=== PATIENT | male | born 1995 | race Caucasian/White ===

== ENCOUNTER 2021-08-01 01:06 | Inpatient (IN) | payer OTHER, SELFPAY ==
[2021-08-01 06:00] VITALS: BP 132/64; PULSE 76; RESP 18; TEMP 36.8; O2SAT 98
--- NOTE | 2021-08-01 06:23 | PC.ADMIT ---
Pt is a 25 yr old male admitted to unit from [facility]. Arrived on unit at 0125 and placed on 5 min checks per policy. Legal status : CV. Denies any medical issues. Denies substance use Tox screen negative. On admission pt denied SI/SH. Denied hallucinations, delusion , HI. Presented with flat affect but pleasant and cooperative when engaged. Pt appeared to be somewhat confused, when given direction but alert and oriented x3.. Pt Presented tp [facility] with his [facility] worker endorsing command AH to jump into [employer]. HX of [place] the river a few times before. reported to not be medication complaint dye to fear of side effects. Pt stated to have already taken HS meds at [facility]. Asked for snack, given sandwich but later gave it back. Stated to have good appetite I am trying to gain weight . Went to bed at 0300. Nurse to nurse done prior to admission. Susan Parnell Np was notified of admission and orders obtained. Pt placed on 15 min checks. Contracts for unit safety and agrees to seek out staff if necessary. Pt currently laying in bed with eyes closed normal respirations will continue to monitor and offer support as needed.
--- NOTE | 2021-08-01 09:33 | P.HPPS_ITS ---
HPI Chief Complaint: SI Sources of Information: patient interviewed, chart reviewed and crisis/core team assessment reviewed HPI Subjective Notes: Jeter Warning and 3 Day Narrative: Mr. Ragland is a 25 year-old male with hx of schizophrenia who was brought to [facility] due to increase CAH to jump off bridge. Mr. Ragland was recently discharged from [facility] earlier this month after being treated for similar presentation. Of note, Mr. Ragland does have hx of jumping off bridge secondary to CAH. In the ED, his utox was negative. On the unit, Mr. Ragland presents as guarded, fearful and hypervigilant. Pt reports auditory hallucinations telling him to hutr himself. Pt also reports voices telling him he is not safe. He reports fair sleep. He reports stopping risperidone about one week ago as he did not think it was helpful. Pt reports poor sleep. On the unit, pt denies any intent to hurt himself or others. Past Psychiatric History: Inpt: multiple in past, recent one on 07/18 at [facility] OP: unknown [facility] involved: Lesia [phone] Past medication trials: risperidone, haldol Medical Evaluation Reviewed: Hospitalist Neda Pending Diagnostics Vital Signs (24Hr): Vital Signs - 24 hr 08/01/21 06:00 Temperature 98.2 F Pulse Rate 76 Respiratory Rate 18 Blood Pressure 132/64 Pulse Oximetry 98 Meds/Allergies Meds Home Medications Acetaminophen (Acetaminophen 325 Mg Tablet) 650 mg PO Q6H PRN PRN Reason: Headache/Pain Mild Scale (1-3) Last Admin: 08/02/21 19:52 Dose: 650 mg Documented by: Al Hydroxide/Mg Hydroxide (Magnesium Hydrox/Alum Hydrox 30 Ml Oral.Susp) 30 ml PO Q6H PRN PRN Reason: Heartburn/Nausea Hydroxyzine HCl (Hydroxyzine Hcl 25 Mg Tablet) 25 mg PO Q6H PRN PRN Reason: Anxiety Last Admin: 08/03/21 17:09 Dose: 25 mg Documented by: Lorazepam (Lorazepam 1 Mg Tablet) 1 mg PO Q4H PRN PRN Reason: Anxiety Last Admin: 08/02/21 22:27 Dose: 1 mg Documented by: Magnesium Hydroxide (Milk Of Magnesia 30 Ml Oral.Susp) 30 ml PO DAILY PRN PRN Reason: Constipation Nicotine Polacrilex (Nicotine Polacrilex 2 Mg Gum) 4 mg BUCCAL Q2H PRN PRN Reason: Nicotine Cravings Olanzapine (Olanzapine 5 Mg Tablet) 5 mg PO Q4H PRN PRN Reason: agitation Last Admin: 08/02/21 22:27 Dose: 5 mg Documented by: Risperidone (Risperidone 3 Mg Tablet) 3 mg PO BID CYNTHIA Last Admin: 08/03/21 21:19 Dose: 3 mg Documented by: Trazodone HCl (Trazodone Hcl 50 Mg Tablet) 50 mg PO BEDTIME PRN PRN Reason: Insomnia Last Admin: 08/03/21 21:21 Dose: 50 mg Documented by: Allergies Allergies Allergy/AdvReac Type Severity Reaction Status Date / Time No Known Allergies Allergy Verified 08/01/21 01:29 Mental Status Exam Mental Status Exam Narrative: Appearance: casually groomed, fair hygiene in NAD Behavior:guarded, suspicious psychomotor:restless, pacing Speech:clear, normal rate/rhythm/spontaneous Thought process:mostly linear Thought content:hearing voices, suspicious, anxious Mood: anxious Affect: congruent SI:passive HI:none VH/AH:CAH telling him to jump off [place] [address] Delusions:paranoia noted Insight/judgment:poor x 2. Memory/cog: alert, oriented x 3. Assessment & Plan Assessment & Plan (1) Schizophrenia, paranoid, chronic with acute exacerbation: Status: Acute Code(s): F20.0 - Paranoid schizophrenia Assessment and Plan: Mr. Ragland is a 25 year-old male with hx of schizophrenia recently discharged from [facility] with similar presentation including CAH with plan to jump off [facility]. Pt does have hx of jumping off recently due to CAH. Pt reports he stopped taking risperidone. He is unsure as to how helpful this medication has been. We discussed risks, benefits and alternative treatment options. Pt agreed to try olanzapine. He reports in the past has been on haldol- but didn't like how it may be feel. PLAN 1. Admit to M3 2. Start Olanzapine 10mg po BID 3. obtain collateral information 4. Aftercare planning. Reason for continued inpatient stay Substantial Risk for: harm to self and inability to function
[2021-08-01] MEDS: OLANZapine ODT 10 MG TAB.RAPDIS TRANSLINGU ×2 (11:13→20:09)
--- NOTE | 2021-08-01 11:15 | PC.NURSE ---
Pt offered first dose of zyprexa at this time per provider. PT accepted medication.
[2021-08-01] MEDS: hydrOXYzine HCL 25 MG TABLET PO (12:38)
[2021-08-01 18:00] VITALS: BP 135/80; PULSE 67; RESP 18; TEMP 36.6; O2SAT 95
--- NOTE | 2021-08-02 07:52 | P.PNPSI_ITS ---
Subjective Subjective Date of Service: 08/04/21 Reason For Visit: SI Subjective Notes: Jeter Warning and 3 Day Interim History: Pt reports he has continued to hear voices. He reports voices telling him to jump off bridge. He reports he did not like how olanzapine made him feel and would rather take higher dose of risperidone. He denies SI/HI. He continues to present as very hypervigilant and fearful. mostly in his room, minimally interactive with peers or staff. Medication Compliance: Intermittent Side effects from medications: No Attending Groups: No Review of Systems Constitutional: Reports poor appetite Eyes: Reports no additional eye complaints Reports system reviewed and no additional complaints, except as documented Cardiovascular: Denies chest pain, Denies chest pain at rest, Denies chest pain with activity, Denies Epigastric Pain, Denies rapid heart rate and Denies dyspnea on exertion Respiratory: Denies chest congestion and Denies dyspnea on exertion Gastrointestinal: Reports constipation Mental Status Exam Mental Status Exam Narrative: Appearance: casually groomed, fair hygiene in NAD Behavior:guarded, suspicious psychomotor:restless, pacing Speech:clear, normal rate/rhythm/spontaneous Thought process:mostly linear Thought content:hearing voices, suspicious, anxious Mood: anxious Affect: congruent SI:passive HI:none VH/AH:CAH telling him to jump off [employer] Delusions:paranoia noted Insight/judgment:poor x 2. Memory/cog: alert, oriented x 3. Diagnostics Vital Signs (24Hr): Vital Signs - 24 hr 08/03/21 08:57 08/03/21 18:00 Temperature 97.1 F 97.9 F Pulse Rate 66 90 Respiratory Rate 18 18 Blood Pressure 119/80 115/88 Pulse Oximetry 99 99 Labs Labs: Laboratory Results - last 48 hr 08/02/21 08/02/21 08/02/21 07:46 07:46 07:46 Estimat Average Glucose 111 Hemoglobin A1c % 5.5 Triglycerides 166 Cholesterol 144 LDL Cholesterol, Calc 75 HDL Cholesterol 36 Vitamin B12 596 Folate 8.2 TSH 0.76 Medications Medications Current Medications Generic Name Dose Route Start Last Admin Trade Name Freq PRN Reason Stop Dose Admin Acetaminophen 650 mg 08/01/21 01:29 08/02/21 19:52 Acetaminophen 325 Mg Tablet PO 650 mg Q6H PRN Administration Headache/Pain Mild Scale (1-3) Al Hydroxide/Mg Hydroxide 30 ml 08/01/21 01:29 Magnesium Hydrox/Alum Hydrox 30 Ml Oral.Susp PO Q6H PRN Heartburn/Nausea Hydroxyzine HCl 25 mg 08/01/21 01:29 08/03/21 17:09 Hydroxyzine Hcl 25 Mg Tablet PO 25 mg Q6H PRN Administration Anxiety Lorazepam 1 mg 08/02/21 15:16 08/02/21 22:27 Lorazepam 1 Mg Tablet PO 1 mg Q4H PRN Administration Anxiety Magnesium Hydroxide 30 ml 08/01/21 01:29 Milk Of Magnesia 30 Ml Oral.Susp PO DAILY PRN Constipation Nicotine Polacrilex 4 mg 08/01/21 01:29 Nicotine Polacrilex 2 Mg Gum BUCCAL Q2H PRN Nicotine Cravings Olanzapine 5 mg 08/02/21 15:16 08/02/21 22:27 Olanzapine 5 Mg Tablet PO 5 mg Q4H PRN Administration agitation Risperidone 3 mg 08/02/21 15:15 08/03/21 21:19 Risperidone 3 Mg Tablet PO 3 mg BID CYNTHIA Administration Trazodone HCl 50 mg 08/01/21 01:29 08/03/21 21:21 Trazodone Hcl 50 Mg Tablet PO 50 mg BEDTIME PRN Administration Insomnia Allergies Allergies Allergy/AdvReac Type Severity Reaction Status Date / Time No Known Allergies Allergy Verified 08/01/21 01:29 Assessment & Plan Assessment & Plan (1) Schizophrenia, paranoid, chronic with acute exacerbation: Status: Acute Code(s): F20.0 - Paranoid schizophrenia Assessment and Plan: Mr. Ragland is a 25 year-old male with hx of schizophrenia recently discharged from [facility] with similar presentation including CAH with plan to jump off [facility]. Pt does have hx of jumping off recently due to CAH. Pt reports he stopped taking risperidone. He is unsure as to how helpful this medication has been. We discussed risks, benefits and alternative treatment options. Pt agreed to try olanzapine. He reports in the past has been on haldol- but didn't like how it may be feel. PLAN 1. Admit to M3 2. d/c Olanzapine 10mg po BID, restart risperidone 3mg po BID. 3. obtain collateral information 4. Aftercare planning. Greater than 50% of the session was spent on counseling and/or coordination of care Reason for contiued inpatient stay Substantial Risk for: harm to self and inability to function
[2021-08-02 08:13] LABS: Cholesterol 144 mg/dL; HDL Cholesterol 36 mg/dL; LDL Cholesterol Calculated 75 mg/dl; Triglycerides 166 mg/dL
[2021-08-02 08:32] LABS: Estimated Average Glucose 111 mg/dL; Hemoglobin A1c % 5.5 %; Thyroid Stimulating Hormone 0.76 uIU/mL (0.32-4.0)
[2021-08-02 09:33] VITALS: BP 123/79; PULSE 83; RESP 16; TEMP 36.4; O2SAT 95
[2021-08-02] MEDS: risperiDONE 3 MG TABLET PO ×2 (15:47→21:16)
[2021-08-02 18:00] VITALS: BP 124/74; PULSE 82; RESP 16; TEMP 36.8; O2SAT 100
[2021-08-02] MEDS: Acetaminophen 325 MG TABLET 650 MG PO (19:52)
[2021-08-02] MEDS: OLANZapine 5 MG TABLET PO (22:27)
[2021-08-02] MEDS: LORazepam 1 MG TABLET PO (22:27)
--- NOTE | 2021-08-03 07:54 | P.PNPSI_ITS ---
Subjective Subjective Date of Service: 08/04/21 Reason For Visit: SI Interim History: Pt reports he has continued to hear voices. He reports voices telling him to jump off bridge. He reports he did not like how olanzapine made him feel and would rather take higher dose of risperidone. He denies SI/HI. He continues to present as very hypervigilant and fearful. mostly in his room, minimally interactive with peers or staff. Review of Systems Constitutional: Reports poor appetite Eyes: Reports no additional eye complaints Reports system reviewed and no additional complaints, except as documented Cardiovascular: Denies chest pain, Denies chest pain at rest, Denies chest pain with activity, Denies Epigastric Pain, Denies rapid heart rate and Denies dyspnea on exertion Respiratory: Denies chest congestion and Denies dyspnea on exertion Gastrointestinal: Reports constipation Mental Status Exam Mental Status Exam Narrative: Appearance: casually groomed, fair hygiene in NAD Behavior:guarded, suspicious psychomotor:restless, pacing Speech:clear, normal rate/rhythm/spontaneous Thought process:mostly linear Thought content:hearing voices, suspicious, anxious Mood: anxious Affect: congruent SI:passive HI:none VH/AH:CAH telling him to jump off [employer] Delusions:paranoia noted Insight/judgment:poor x 2. Memory/cog: alert, oriented x 3. Diagnostics Vital Signs (24Hr): Vital Signs - 24 hr 08/03/21 08:57 08/03/21 18:00 Temperature 97.1 F 97.9 F Pulse Rate 66 90 Respiratory Rate 18 18 Blood Pressure 119/80 115/88 Pulse Oximetry 99 99 Labs Labs: Laboratory Results - last 48 hr 08/02/21 08/02/21 08/02/21 07:46 07:46 07:46 Estimat Average Glucose 111 Hemoglobin A1c % 5.5 Triglycerides 166 Cholesterol 144 LDL Cholesterol, Calc 75 HDL Cholesterol 36 Vitamin B12 596 Folate 8.2 TSH 0.76 Medications Medications Current Medications Generic Name Dose Route Start Last Admin Trade Name Freq PRN Reason Stop Dose Admin Acetaminophen 650 mg 08/01/21 01:29 08/02/21 19:52 Acetaminophen 325 Mg Tablet PO 650 mg Q6H PRN Administration Headache/Pain Mild Scale (1-3) Al Hydroxide/Mg Hydroxide 30 ml 08/01/21 01:29 Magnesium Hydrox/Alum Hydrox 30 Ml Oral.Susp PO Q6H PRN Heartburn/Nausea Hydroxyzine HCl 25 mg 08/01/21 01:29 08/03/21 17:09 Hydroxyzine Hcl 25 Mg Tablet PO 25 mg Q6H PRN Administration Anxiety Lorazepam 1 mg 08/02/21 15:16 08/02/21 22:27 Lorazepam 1 Mg Tablet PO 1 mg Q4H PRN Administration Anxiety Magnesium Hydroxide 30 ml 08/01/21 01:29 Milk Of Magnesia 30 Ml Oral.Susp PO DAILY PRN Constipation Nicotine Polacrilex 4 mg 08/01/21 01:29 Nicotine Polacrilex 2 Mg Gum BUCCAL Q2H PRN Nicotine Cravings Olanzapine 5 mg 08/02/21 15:16 08/02/21 22:27 Olanzapine 5 Mg Tablet PO 5 mg Q4H PRN Administration agitation Risperidone 3 mg 08/02/21 15:15 08/03/21 21:19 Risperidone 3 Mg Tablet PO 3 mg BID CYNTHIA Administration Trazodone HCl 50 mg 08/01/21 01:29 08/03/21 21:21 Trazodone Hcl 50 Mg Tablet PO 50 mg BEDTIME PRN Administration Insomnia Allergies Allergies Allergy/AdvReac Type Severity Reaction Status Date / Time No Known Allergies Allergy Verified 08/01/21 01:29 Assessment & Plan Assessment & Plan (1) Schizophrenia, paranoid, chronic with acute exacerbation: Status: Acute Code(s): F20.0 - Paranoid schizophrenia Assessment and Plan: Mr. Ragland is a 25 year-old male with hx of schizophrenia recently discharged from [facility] with similar presentation including CAH with plan to jump off [facility]. Pt does have hx of jumping off recently due to CAH. Pt reports he stopped taking risperidone. He is unsure as to how helpful this medication has been. We discussed risks, benefits and alternative treatment options. Pt agreed to try olanzapine. He reports in the past has been on haldol- but didn't like how it may be feel. PLAN 1. Admit to M3 2. d/c Olanzapine 10mg po BID, restart risperidone 3mg po BID. 3. obtain collateral information 4. Aftercare planning. Greater than 50% of the session was spent on counseling and/or coordination of care Reason for contiued inpatient stay Substantial Risk for: inability to function
[2021-08-03 08:57] VITALS: BP 119/80; PULSE 66; RESP 18; TEMP 36.2; O2SAT 99
[2021-08-03] MEDS: risperiDONE 3 MG TABLET PO ×2 (09:13→21:19)
[2021-08-03 09:49] LABS: Folate 8.2 ng/mL (> or = 4.0); Vitamin B12 596 pg/mL (200-900)
[2021-08-03] MEDS: hydrOXYzine HCL 25 MG TABLET PO (17:09)
[2021-08-03 18:00] VITALS: BP 115/88; PULSE 90; RESP 18; TEMP 36.6; O2SAT 99
[2021-08-03] MEDS: traZODone HCL 50 MG TABLET PO (21:21)
[2021-08-04 06:00] VITALS: BP 134/86; PULSE 91; RESP 20; TEMP 36.9; O2SAT 98
[2021-08-04] MEDS: risperiDONE 3 MG TABLET PO (08:52)
[2021-08-04] MEDS: LORazepam 1 MG TABLET PO ×3 (11:55→21:20)
--- NOTE | 2021-08-04 12:59 | HO.HSGERICON ---
History of Present Illness Data of Consult Service Date: 08/04/21 Primary Care Provider: Unknown Physician HPI Reason for consult: Routine Medical consult This is a 25 yo M admitted to the psych unit. Medical consultation requested per protocol. Patient is seen and examined in his room. He denies any physical complaints He denies being on medication for any medical conditions. Review of Systems Review of Systems: General - no fevers or chills Cardiovascular - no chest pain Respiratory - no shortness of breath or cough Abdominal- no abdominal pain, nausea, vomiting, diarrhea PMFSH Social History Household Members: Other Housing: Other Housing Other:: [facility] Do you presently have visiting nurse or other home services: No Patient Tobacco Use Status: Current someday Tobacco user Tobacco use type: Cigarette Smoked in Last 30 Days: Yes e-Cigarette/Vaping Use: Never Used Patient Interested in Nicotine Replacement: Yes Patient Given Instructions on How to Stop Smoking: No Use of substances other than those prescribed or required for medical reasons: Yes Substance Use Type: Hallucinogens and Marijuana Substance Use Type Other:: pt denied any drug use but ed forms state pt used marijuana, LSD, ecstasy Substance Use Frequency: Occasionally Last Used Substance: Days (ago) Last Used Substance Other:: 3 days ago Currently Displaying Signs/Symptoms of Drug Intoxication Withdrawal: No Any prior treatment program specific to substance use: No Have you been hit, kicked, punched, or otherwise hurt by someone within the past year? If so, by whom?: No Do you feel safe in your current relationship?: No Is there a partner from a previous relationship who is making you feel unsafe now?: No Are you made to feel afraid or neglected: No Spiritual Healthcare Practices: pt states believes in God but isn't scientologist no specific hinduism. Islam Healthcare Practices: none Advance Directives: No Advance Directives Information Provided: No Advance Directives on File: No Do you have thoughts of harming others: None Do you have a plan to hurt others: No Plan Recently lost weight without trying: No Eating poorly because of decreased appetite: No Nutrition Risks: No Nutritional Risk Poor oral hygiene: No Sexual orientation: Cisgender Meds Allergies Allergy/AdvReac Type Severity Reaction Status Date / Time No Known Allergies Allergy Verified 08/01/21 01:29 Active Medications: Current Medications Generic Name Dose Route Start Last Admin Trade Name Freq PRN Reason Stop Dose Admin Acetaminophen 650 mg 08/01/21 01:29 08/02/21 19:52 Acetaminophen 325 Mg Tablet PO 650 mg Q6H PRN Administration Headache/Pain Mild Scale (1-3) Al Hydroxide/Mg Hydroxide 30 ml 08/01/21 01:29 Magnesium Hydrox/Alum Hydrox 30 Ml Oral.Susp PO Q6H PRN Heartburn/Nausea Hydroxyzine HCl 25 mg 08/01/21 01:29 08/03/21 17:09 Hydroxyzine Hcl 25 Mg Tablet PO 25 mg Q6H PRN Administration Anxiety Hydroxyzine HCl 25 mg 08/04/21 17:00 Hydroxyzine Hcl 25 Mg Tablet PO DAILY CYNTHIA Lorazepam 1 mg 08/02/21 15:16 08/04/21 11:55 Lorazepam 1 Mg Tablet PO 1 mg Q4H PRN Administration Anxiety Magnesium Hydroxide 30 ml 08/01/21 01:29 Milk Of Magnesia 30 Ml Oral.Susp PO DAILY PRN Constipation Nicotine Polacrilex 4 mg 08/01/21 01:29 Nicotine Polacrilex 2 Mg Gum BUCCAL Q2H PRN Nicotine Cravings Olanzapine 5 mg 08/02/21 15:16 08/02/21 22:27 Olanzapine 5 Mg Tablet PO 5 mg Q4H PRN Administration agitation Olanzapine 7.5 mg 08/04/21 21:00 Olanzapine 2.5 Mg Tablet PO BID CYNTHIA Trazodone HCl 50 mg 08/01/21 01:29 08/03/21 21:21 Trazodone Hcl 50 Mg Tablet PO 50 mg BEDTIME PRN Administration Insomnia Assessment and Plan (1) Routine medical exam: Status: Acute This is a 25 yo M admitted to the inpatient psych unit. He has no active (at this time) nor chronic medical issues. Continue psychiatric treatment per primary team. Will sign off, please reconsult PRN. Physical Exam Vital Signs: Last Vital Signs Temp 97.9 F 08/03/21 18:00 Pulse 90 08/03/21 18:00 Resp 18 08/03/21 18:00 BP 115/88 08/03/21 18:00 Pulse Ox 99 08/03/21 18:00 Const Other: General - no acute distress, appears comfortable Cardiovascular - regular rate and rhythm, S1-S2 Lungs - normal respiratory effort, clear to auscultation bilaterally, no wheezing Abdomen - soft, nontender, no rebound or guarding Extremities - no edema bilaterally Neuro - awake and alert, no focal deficits; CN 2-12 in tact Neuro Cranial nerves: Yes CN's II-XII intact bilaterally
--- NOTE | 2021-08-04 13:57 | P.PNPSI_ITS ---
Subjective Subjective Date of Service: 08/04/21 Reason For Visit: SI Interim History: pt reports he is feeling a bit better since admission. he has been taking risperidone for the past several days. he is normally prescribed risperidone outpatient. asking to be able to use his cellphone or laptop in the hospital and is informed it is against hospital practice. he at first states he would like to discharge to a alf if that is the case but then decides to stay. he is amenable to trying a different neuroleptic bcse his Sx are not fully resolved on a substantial dose of risperidone. he agrees to olanzapine trial at 10 BID. denies SI. endorses AH or derogatory commentary, no CAH. per staff, signed and then retracted 3-day. attended 2/3 groups. wandering, active in milieu, appropriate socially. disorganized, asking for fresh air breaks. was found with his phone ini his room, playing games. had a PRN which was helpful for anxiety. Mental Status Exam Mental Status Exam Narrative: appropriately dressed and groomed. cooperative with interview. speech nml in rate, amount. soft. nml latency. affect moderately flexible. appropriate, normo-intense, non-labile. mood OK. denies SI. endorses AH (no CAH). no HI expressed. Diagnostics Vital Signs (24Hr): Vital Signs - 24 hr 08/03/21 18:00 Temperature 97.9 F Pulse Rate 90 Respiratory Rate 18 Blood Pressure 115/88 Pulse Oximetry 99 Labs Labs: Laboratory Results - last 48 hr 08/02/21 07:46 Vitamin B12 596 Folate 8.2 Medications Medications Current Medications Generic Name Dose Route Start Last Admin Trade Name Willq PRN Reason Stop Dose Admin Acetaminophen 650 mg 08/01/21 01:29 08/02/21 19:52 Acetaminophen 325 Mg Tablet PO 650 mg Q6H PRN Administration Headache/Pain Mild Scale (1-3) Al Hydroxide/Mg Hydroxide 30 ml 08/01/21 01:29 Magnesium Hydrox/Alum Hydrox 30 Ml Oral.Susp PO Q6H PRN Heartburn/Nausea Hydroxyzine HCl 25 mg 08/01/21 01:29 08/03/21 17:09 Hydroxyzine Hcl 25 Mg Tablet PO 25 mg Q6H PRN Administration Anxiety Hydroxyzine HCl 25 mg 08/04/21 17:00 Hydroxyzine Hcl 25 Mg Tablet PO DAILY CYNTHIA Lorazepam 1 mg 08/02/21 15:16 08/04/21 11:55 Lorazepam 1 Mg Tablet PO 1 mg Q4H PRN Administration Anxiety Magnesium Hydroxide 30 ml 08/01/21 01:29 Milk Of Magnesia 30 Ml Oral.Susp PO DAILY PRN Constipation Nicotine Polacrilex 4 mg 08/01/21 01:29 Nicotine Polacrilex 2 Mg Gum BUCCAL Q2H PRN Nicotine Cravings Olanzapine 5 mg 08/02/21 15:16 08/02/21 22:27 Olanzapine 5 Mg Tablet PO 5 mg Q4H PRN Administration agitation Olanzapine 7.5 mg 08/04/21 21:00 Olanzapine 2.5 Mg Tablet PO BID CYNTHIA Trazodone HCl 50 mg 08/01/21 01:29 08/03/21 21:21 Trazodone Hcl 50 Mg Tablet PO 50 mg BEDTIME PRN Administration Insomnia Allergies Allergies Allergy/AdvReac Type Severity Reaction Status Date / Time No Known Allergies Allergy Verified 08/01/21 01:29 Assessment & Plan Assessment & Plan (1) Schizophrenia, paranoid, chronic with acute exacerbation: Status: Acute Code(s): F20.0 - Paranoid schizophrenia Assessment and Plan: Mr. Ragland is a 25 year-old male with hx of schizophrenia recently discharged from [facility] with similar presentation including CAH with plan to jump off bridge into [facility]. Pt does have hx of jumping off bridge recently due to CAH. Pt reports he stopped taking risperidone. He is unsure as to how helpful this medication has been. We discussed risks, benefits and alternative treatment options. Pt agreed to try olanzapine. He reports in the past has been on haldol- but didn't like how it may be feel. PLAN 1. keep safe on unit; Q15 min checks. 2. d/c risperidone 3mg po BID, start olanzapine 10 mg PO BID. 3. Aftercare planning. Greater than 50% of the session was spent on counseling and/or coordination of care Reason for contiued inpatient stay Substantial Risk for: harm to self, inability to function and rapid decompensation
[2021-08-04] MEDS: hydrOXYzine HCL 25 MG TABLET PO ×3 (14:11→21:20)
[2021-08-04] MEDS: Acetaminophen 325 MG TABLET 650 MG PO (16:46)
[2021-08-04 18:00] VITALS: BP 119/75; PULSE 90; TEMP 36.7; O2SAT 98
[2021-08-04] MEDS: OLANZapine 2.5 MG TABLET 7.5 MG PO (20:29)
[2021-08-05] MEDS: OLANZapine 5 MG TABLET PO (00:03)
[2021-08-05] MEDS: traZODone HCL 50 MG TABLET PO (00:03)
[2021-08-05 01:00] VITALS: BP 115/70; PULSE 80
[2021-08-05] MEDS: hydrOXYzine HCL 25 MG TABLET PO (08:41)
[2021-08-05] MEDS: OLANZapine 2.5 MG TABLET 7.5 MG PO (08:42)
--- NOTE | 2021-08-05 12:19 | P.PNPSI_ITS ---
Subjective Subjective Date of Service: 08/05/21 Reason For Visit: SI Interim History: pt reports feeling sedated this morning, which he (most likely correctly) attributes to the olanzapine. MD informs pt the dosing will be rescheduled to all be at HS. pt is in agreement with this plan. he expresses strong anxiety today at the same time as feeling sedated. it appears he has taken some hydroxyzine; MD counsels against hydroxyzine if he does not wish to be sedated. he shortly after asks for something for his anxiety, which MD now believes to be quite substantial. it is noted he has a PRN of ativan available and pt is advised to take ativan in the present case. pt agrees. no other complaints or requests. per staff, pt reporting fair anxiety. c/o depression as well. denies SI. endorses AH but does not elaborate. pacing the halls, staring at self in the hallway mirrors, has confided in staff the need to watch violent porn in order to feel sexually aroused. he reports h/o exposure to such content as a child. Mental Status Exam Mental Status Exam Narrative: appropriately dressed and groomed. cooperative with interview. speech nml in rate, amount. soft. nml latency. affect moderately flexible. appropriate, normo-intense, non-labile. mood anxious no SI/HI/AVH expressed. Diagnostics Vital Signs (24Hr): Vital Signs - 24 hr 08/04/21 18:00 08/05/21 01:00 Temperature 98.0 F Pulse Rate 90 80 Blood Pressure 119/75 115/70 Pulse Oximetry 98 Medications Medications Current Medications Generic Name Dose Route Start Last Admin Trade Name Cruz PRN Reason Stop Dose Admin Acetaminophen 650 mg 08/01/21 01:29 08/04/21 16:46 Acetaminophen 325 Mg Tablet PO 650 mg Q6H PRN Administration Headache/Pain Mild Scale (1-3) Al Hydroxide/Mg Hydroxide 30 ml 08/01/21 01:29 Magnesium Hydrox/Alum Hydrox 30 Ml Oral.Susp PO Q6H PRN Heartburn/Nausea Hydroxyzine HCl 25 mg 08/01/21 01:29 08/05/21 08:41 Hydroxyzine Hcl 25 Mg Tablet PO 25 mg Q6H PRN Administration Anxiety Hydroxyzine HCl 25 mg 08/04/21 17:00 08/05/21 10:04 Hydroxyzine Hcl 25 Mg Tablet PO Not Given DAILY CYNTHIA Lorazepam 1 mg 08/02/21 15:16 08/04/21 21:20 Lorazepam 1 Mg Tablet PO 1 mg Q4H PRN Administration Anxiety Magnesium Hydroxide 30 ml 08/01/21 01:29 Milk Of Magnesia 30 Ml Oral.Susp PO DAILY PRN Constipation Nicotine Polacrilex 4 mg 08/01/21 01:29 Nicotine Polacrilex 2 Mg Gum BUCCAL Q2H PRN Nicotine Cravings Olanzapine 5 mg 08/02/21 15:16 08/05/21 00:03 Olanzapine 5 Mg Tablet PO 5 mg Q4H PRN Administration agitation Olanzapine 20 mg 08/05/21 21:00 Olanzapine 10 Mg Tablet PO BEDTIME CYNTHIA Trazodone HCl 50 mg 08/01/21 01:29 08/05/21 00:03 Trazodone Hcl 50 Mg Tablet PO 50 mg BEDTIME PRN Administration Insomnia Allergies Allergies Allergy/AdvReac Type Severity Reaction Status Date / Time No Known Allergies Allergy Verified 08/01/21 01:29 Assessment & Plan Assessment & Plan (1) Schizophrenia, paranoid, chronic with acute exacerbation: Status: Acute Code(s): F20.0 - Paranoid schizophrenia Assessment and Plan: Mr. Ragland is a 25 year-old male with hx of schizophrenia recently discharged from [facility] with similar presentation including CAH with plan to jump [facility] into [facility]. Pt does have hx of jumping off bridge recently due to CAH. Pt reports he stopped taking risperidone. He is unsure as to how helpful this medication has been. We discussed risks, benefits and alternative treatment options. Pt agreed to try olanzapine. He reports in the past has been on haldol- but didn't like how it may be feel. PLAN 1. keep safe on unit; Q15 min checks. 2. d/sakshi risperidone 3mg po BID 08/04, started olanzapine 7.5 mg PO BID. dosing changed to 20 mg QHS as of 08/05 due to c/o morning sedation. 3. Aftercare planning. Greater than 50% of the session was spent on counseling and/or coordination of care Reason for contiued inpatient stay Substantial Risk for: inability to function and rapid decompensation
--- NOTE | 2021-08-05 17:37 | PC.NURSE ---
Patient retracted 3 day note, signed conditional voluntary [id number].
[2021-08-05] MEDS: OLANZapine 10 MG TABLET 20 MG PO (20:09)
[2021-08-05 20:51] VITALS: BP 117/73; PULSE 81; TEMP 36.2; O2SAT 99
[2021-08-06 08:35] VITALS: RESP 16
--- NOTE | 2021-08-06 08:47 | P.PNPSI_ITS ---
Subjective Subjective Date of Service: 08/07/21 Reason For Visit: SI Interim History: Pt reports hearing voices and these voices being distressing. He continues to report voices telling him to hurt himself. Pt suspicious at times towards staff and medications. He asks for help but same time not feeling safe in unit due to paranoia therefore he signs on and off 3 day notices. He denies any plan or intent to hurt himself. Medication Compliance: Yes Side effects from medications: No Attending Groups: No Review of Systems Review of Systems General - no fevers or chills Cardiovascular - no chest pain Respiratory - no shortness of breath or cough Abdominal- no abdominal pain, nausea, vomiting, diarrhea Constitutional: Reports poor appetite Eyes: Reports no additional eye complaints Reports system reviewed and no additional complaints, except as documented Cardiovascular: Denies chest pain, Denies chest pain at rest, Denies chest pain with activity, Denies Epigastric Pain, Denies rapid heart rate and Denies dyspnea on exertion Respiratory: Denies chest congestion and Denies dyspnea on exertion Gastrointestinal: Reports constipation Mental Status Exam Mental Status Exam Narrative: Appearance: casually groomed, fair hygiene in NAD Behavior:guarded, suspicious psychomotor:restless, pacing Speech:clear, normal rate/rhythm/spontaneous Thought process:mostly linear Thought content:hearing voices, suspicious, anxious Mood: anxious Affect: congruent SI:passive HI:none VH/AH:CAH telling him to [place] off [place] Delusions:paranoia noted Insight/judgment:poor x 2. Memory/cog: alert, oriented x 3. Diagnostics Vital Signs (24Hr): Vital Signs - 24 hr 08/06/21 20:32 Temperature 97.8 F Pulse Rate 114 H Blood Pressure 132/88 Pulse Oximetry 97 Medications Medications Current Medications Generic Name Dose Route Start Last Admin Trade Name Freq PRN Reason Stop Dose Admin Acetaminophen 650 mg 08/01/21 01:29 08/04/21 16:46 Acetaminophen 325 Mg Tablet PO 650 mg Q6H PRN Administration Headache/Pain Mild Scale (1-3) Al Hydroxide/Mg Hydroxide 30 ml 08/01/21 01:29 Magnesium Hydrox/Alum Hydrox 30 Ml Oral.Susp PO Q6H PRN Heartburn/Nausea Hydroxyzine HCl 25 mg 08/01/21 01:29 08/05/21 08:41 Hydroxyzine Hcl 25 Mg Tablet PO 25 mg Q6H PRN Administration Anxiety Hydroxyzine HCl 25 mg 08/04/21 17:00 08/06/21 08:02 Hydroxyzine Hcl 25 Mg Tablet PO Not Given DAILY CYNTHIA Lorazepam 1 mg 08/02/21 15:16 08/06/21 14:09 Lorazepam 1 Mg Tablet PO 1 mg Q4H PRN Administration Anxiety Magnesium Hydroxide 30 ml 08/01/21 01:29 Milk Of Magnesia 30 Ml Oral.Susp PO DAILY PRN Constipation Nicotine Polacrilex 4 mg 08/01/21 01:29 Nicotine Polacrilex 2 Mg Gum BUCCAL Q2H PRN Nicotine Cravings Olanzapine 5 mg 08/02/21 15:16 08/05/21 00:03 Olanzapine 5 Mg Tablet PO 5 mg Q4H PRN Administration agitation Olanzapine 20 mg 08/05/21 21:00 08/06/21 20:21 Olanzapine 10 Mg Tablet PO 20 mg BEDTIME CYNTHIA Administration Trazodone HCl 50 mg 08/01/21 01:29 08/05/21 00:03 Trazodone Hcl 50 Mg Tablet PO 50 mg BEDTIME PRN Administration Insomnia Allergies Allergies Allergy/AdvReac Type Severity Reaction Status Date / Time No Known Allergies Allergy Verified 08/01/21 01:29 Assessment & Plan Assessment & Plan (1) Schizophrenia, paranoid, chronic with acute exacerbation: Status: Acute Code(s): F20.0 - Paranoid schizophrenia Assessment and Plan: Mr. Ragland is a 25 year-old male with hx of schizophrenia recently discharged from [facility] with similar presentation including CAH [facility] Pt does have hx of jumping off bridge recently due to CAH. Pt reports he stopped taking risperidone. He is unsure as to how helpful this m edication has been. We discussed risks, benefits and alternative treatment options. Pt agreed to try olanzapine. He reports in the past has been on haldol- but didn't like how it may be feel. PLAN 1. keep safe on unit; Q15 min checks. 2. d/sakshi risperidone 3mg po BID 08/04, started olanzapine 7.5 mg PO BID. dosing changed to 20 mg QHS as of 08/05 due to c/o morning sedation. 3. Aftercare planning. Greater than 50% of the session was spent on counseling and/or coordination of care Reason for contiued inpatient stay Substantial Risk for: harm to self and inability to function
[2021-08-06] MEDS: LORazepam 1 MG TABLET PO (14:09)
[2021-08-06] MEDS: OLANZapine 10 MG TABLET 20 MG PO (20:21)
[2021-08-06 20:32] VITALS: BP 132/88; PULSE 114; TEMP 36.6; O2SAT 97
[2021-08-07 09:48] VITALS: BP 127/83; PULSE 73; RESP 16; TEMP 36.5; O2SAT 97
--- NOTE | 2021-08-07 10:38 | HO.PSYCHPN ---
Subjective Subjective Date of Service: 08/07/21 Reason For Visit: SI Interim History: pt asks when he will be leaving; he is informed it is a discussion between his Tx team and him. he agrees to revisit next week. he states he is interested in obtaining housing. he is referred to speak with his SW chacha on that topic. he reports he continues to hear AH but they are improved from admission. he states he actually has not heard any today. his mood is fair. per staff, attending groups, active with staff guidance. experiencing derogatory AH. asking for his phone. signed and retracted 3-day notice x3. slept well overnight. Mental Status Exam Mental Status Exam Narrative: appropriately dressed and groomed. cooperative with interview. speech nml in rate, amount. soft. nml latency. affect moderately flexible, appropriate, normo-intense, non-labile. mood fair no AH this morning. no SI/HI/VH expressed. Diagnostics Vital Signs (24Hr): Vital Signs - 24 hr 08/06/21 20:32 08/07/21 09:48 Temperature 97.8 F 97.7 F Pulse Rate 114 H 73 Respiratory Rate 16 Blood Pressure 132/88 127/83 Pulse Oximetry 97 97 Medications Medications Current Medications Generic Name Dose Route Start Last Admin Trade Name Freq PRN Reason Stop Dose Admin Acetaminophen 650 mg 08/01/21 01:29 08/04/21 16:46 Acetaminophen 325 Mg Tablet PO 650 mg Q6H PRN Administration Headache/Pain Mild Scale (1-3) Al Hydroxide/Mg Hydroxide 30 ml 08/01/21 01:29 Magnesium Hydrox/Alum Hydrox 30 Ml Oral.Susp PO Q6H PRN Heartburn/Nausea Hydroxyzine HCl 25 mg 08/01/21 01:29 08/05/21 08:41 Hydroxyzine Hcl 25 Mg Tablet PO 25 mg Q6H PRN Administration Anxiety Hydroxyzine HCl 25 mg 08/07/21 17:00 Hydroxyzine Hcl 25 Mg Tablet PO DAILY@1700 CYNTHIA Lorazepam 1 mg 08/02/21 15:16 08/06/21 14:09 Lorazepam 1 Mg Tablet PO 1 mg Q4H PRN Administration Anxiety Magnesium Hydroxide 30 ml 08/01/21 01:29 Milk Of Magnesia 30 Ml Oral.Susp PO DAILY PRN Constipation Nicotine Polacrilex 4 mg 08/01/21 01:29 Nicotine Polacrilex 2 Mg Gum BUCCAL Q2H PRN Nicotine Cravings Olanzapine 5 mg 08/02/21 15:16 08/05/21 00:03 Olanzapine 5 Mg Tablet PO 5 mg Q4H PRN Administration agitation Olanzapine 20 mg 08/05/21 21:00 08/06/21 20:21 Olanzapine 10 Mg Tablet PO 20 mg BEDTIME CYNTHIA Administration Trazodone HCl 50 mg 08/01/21 01:29 08/05/21 00:03 Trazodone Hcl 50 Mg Tablet PO 50 mg BEDTIME PRN Administration Insomnia Allergies Allergies Allergy/AdvReac Type Severity Reaction Status Date / Time No Known Allergies Allergy Verified 08/01/21 01:29 Assessment & Plan Assessment & Plan (1) Schizophrenia, paranoid, chronic with acute exacerbation: Status: Acute Code(s): F20.0 - Paranoid schizophrenia Assessment and Plan: Mr. Ragland is a 25 year-old male with hx of schizophrenia recently discharged from [facility] with similar presentation including CAH with plan to jump off bridge into [facility]. Pt does have hx of jumping off bridge recently due to CAH. Pt reports he stopped taking risperidone. He is unsure as to how helpful this medication has been. We discussed risks, benefits and alternative treatment options. Pt agreed to try olanzapine. He reports in the past has been on haldol- but didn't like how it may be feel. PLAN 1. keep safe on unit; Q15 min checks. 2. d/sakshi risperidone 3mg po BID 08/04, started olanzapine 7.5 mg PO BID. dosing changed to 20 mg QHS as of 08/05 due to c/o morning sedation. 3. Aftercare planning. Greater than 50% of the session was spent on counseling and/or coordination of care Reason for contiued inpatient stay Substantial Risk for: inability to function and rapid decompensation
[2021-08-07] MEDS: hydrOXYzine HCL 25 MG TABLET PO ×3 (14:36→21:39)
[2021-08-07] MEDS: traZODone HCL 50 MG TABLET PO (20:30)
[2021-08-07] MEDS: OLANZapine 10 MG TABLET 20 MG PO (20:30)
[2021-08-07 20:35] VITALS: BP 124/86; PULSE 95; RESP 18; TEMP 36.7; O2SAT 95
[2021-08-08 06:00] VITALS: BP 128/72; PULSE 90; RESP 16; TEMP 35.4; O2SAT 97
--- NOTE | 2021-08-08 10:59 | HO.PSYCHPN ---
Subjective Subjective Date of Service: 08/08/21 Reason For Visit: SI Interim History: Patient seen. DW nursing. He reports he had a nightmare last night. He is tired today. Reportedly voices a little calmer . He is isolative. Stays in his room. He offers no other complpaints. He denies SI. Denies HI. His mood is fair. He prints out coloring pages from his phone. He hangs them on the wall in his room. Review of Systems Review of Systems General - no fevers or chills Cardiovascular - no chest pain Respiratory - no shortness of breath or cough Abdominal- no abdominal pain, nausea, vomiting, diarrhea Constitutional: Reports poor appetite Eyes: Reports no additional eye complaints Reports system reviewed and no additional complaints, except as documented Cardiovascular: Denies chest pain, Denies chest pain at rest, Denies chest pain with activity, Denies Epigastric Pain, Denies rapid heart rate and Denies dyspnea on exertion Respiratory: Denies chest congestion and Denies dyspnea on exertion Gastrointestinal: Reports constipation Mental Status Exam Mental Status Exam Narrative: appropriately dressed and groomed. Laying in bed. Appears tired. Fairly cooperative. Slowed speech. soft. nml latency. affect Constricted. Appropriate, normo-intense, non-labile. mood fair Hallucinations calmer since coming in. no SI/HI/VH expressed. Diagnostics Vital Signs (24Hr): Vital Signs - 24 hr 08/07/21 20:35 Temperature 98.1 F Pulse Rate 95 Respiratory Rate 18 Blood Pressure 124/86 Pulse Oximetry 95 Medications Medications Current Medications Generic Name Dose Route Start Last Admin Trade Name Freq PRN Reason Stop Dose Admin Acetaminophen 650 mg 08/01/21 01:29 08/04/21 16:46 Acetaminophen 325 Mg Tablet PO 650 mg Q6H PRN Administration Headache/Pain Mild Scale (1-3) Al Hydroxide/Mg Hydroxide 30 ml 08/01/21 01:29 Magnesium Hydrox/Alum Hydrox 30 Ml Oral.Susp PO Q6H PRN Heartburn/Nausea Hydroxyzine HCl 25 mg 08/01/21 01:29 08/07/21 21:39 Hydroxyzine Hcl 25 Mg Tablet PO 25 mg Q6H PRN Administration Anxiety Hydroxyzine HCl 25 mg 08/07/21 17:00 08/07/21 17:23 Hydroxyzine Hcl 25 Mg Tablet PO 25 mg DAILY@1700 CYNTHIA Administration Lorazepam 1 mg 09/05/21 15:16 08/06/21 14:09 Lorazepam 1 Mg Tablet PO 1 mg Q4H PRN Administration Anxiety Magnesium Hydroxide 30 ml 08/01/21 01:29 Milk Of Magnesia 30 Ml Oral.Susp PO DAILY PRN Constipation Nicotine Polacrilex 4 mg 08/01/21 01:29 Nicotine Polacrilex 2 Mg Gum BUCCAL Q2H PRN Nicotine Cravings Olanzapine 5 mg 08/02/21 15:16 08/05/21 00:03 Olanzapine 5 Mg Tablet PO 5 mg Q4H PRN Administration agitation Olanzapine 20 mg 08/05/21 21:00 08/07/21 20:30 Olanzapine 10 Mg Tablet PO 20 mg BEDTIME CYNTHIA Administration Trazodone HCl 50 mg 08/01/21 01:29 08/07/21 20:30 Trazodone Hcl 50 Mg Tablet PO 50 mg BEDTIME PRN Administration Insomnia Allergies Allergies Allergy/AdvReac Type Severity Reaction Status Date / Time No Known Allergies Allergy Verified 08/01/21 01:29 Assessment & Plan Assessment & Plan (1) Schizophrenia, paranoid, chronic with acute exacerbation: Status: Acute Code(s): F20.0 - Paranoid schizophrenia Assessment and Plan: Mr. Ragland is a 25 year-old male with hx of schizophrenia recently discharged from [facility] with similar presentation including CAH with plan to jump off bridge into [facility]. Pt does have hx of jumping off bridge recently due to CAH. Pt reports he stopped taking risperidone. He is unsure as to how helpful this medication has been. We discussed risks, benefits and alternative treatment options. Pt agreed to try olanzapine. He reports in the past has been on haldol- but didn't like how it may be feel. PLAN 1. keep safe on unit; Q15 min checks. 2. d/sakshi risperidone 3mg po BID 08/04, started olanzapine 7.5 mg PO BID. dosing changed to 20 mg QHS as of 08/05 due to c/o morning sedation. 3. Aftercare planning. Per primary treatment team. Greater than 50% of the session was spent on counseling and/or coordination of care Reason for contiued inpatient stay Substantial Risk for: harm to self, inability to function and rapid decompensation
[2021-08-08] MEDS: LORazepam 1 MG TABLET PO (14:50)
[2021-08-08] MEDS: OLANZapine 5 MG TABLET PO (14:50)
[2021-08-08 18:00] VITALS: BP 132/81; PULSE 107; RESP 18; TEMP 36.7; O2SAT 98
[2021-08-08] MEDS: hydrOXYzine HCL 25 MG TABLET PO ×2 (18:21→23:55)
[2021-08-08] MEDS: OLANZapine 10 MG TABLET 20 MG PO (21:20)
[2021-08-08] MEDS: traZODone HCL 50 MG TABLET PO (23:55)
[2021-08-09 08:09] VITALS: BP 96/56; PULSE 79; RESP 16; TEMP 36.9; O2SAT 98
--- NOTE | 2021-08-09 15:49 | PC.NURSE ---
Patient signed 3 day note stating he just wants to go home. The voices are gone, the medicine is helping . I am not suicidal and I just want to go home .
[2021-08-09] MEDS: hydrOXYzine HCL 25 MG TABLET PO (18:33)
[2021-08-09 19:15] VITALS: BP 130/80; PULSE 95; RESP 16; TEMP 36.6; O2SAT 98
--- NOTE | 2021-08-09 20:18 | HO.PSYCHPN ---
Subjective Subjective Date of Service: 08/09/21 Reason For Visit: SI Interim History: Patient seen. DW nursing. Reports he continues to have hallucinations. He says his SI is gone. He is isolative. He prints out coloring pages from his phone. He hangs them on the wall in his room. Medication Compliance: Yes Side effects from medications: No Attending Groups: No Review of Systems Acute medical concerns: No Review of Systems Review of Systems General - no fevers or chills Cardiovascular - no chest pain Respiratory - no shortness of breath or cough Abdominal- no abdominal pain, nausea, vomiting, diarrhea Constitutional: Reports poor appetite Eyes: Reports no additional eye complaints Reports system reviewed and no additional complaints, except as documented Cardiovascular: Denies chest pain, Denies chest pain at rest, Denies chest pain with activity, Denies Epigastric Pain, Denies rapid heart rate and Denies dyspnea on exertion Respiratory: Denies chest congestion and Denies dyspnea on exertion Gastrointestinal: Reports constipation Mental Status Exam Mental Status Exam Narrative: appropriately dressed and groomed. Laying in bed. Appears tired. Fairly cooperative. Slowed speech. soft. nml latency. affect Constricted. Appropriate, normo-intense, non-labile. mood fair Hallucinations calmer since coming in. no SI/HI/VH expressed. Diagnostics Vital Signs (24Hr): Vital Signs - 24 hr 08/09/21 08:09 08/09/21 19:15 Temperature 98.4 F 97.9 F Pulse Rate 79 95 Respiratory Rate 16 16 Blood Pressure 96/56 L 130/80 Pulse Oximetry 98 98 Medications Medications Current Medications Generic Name Dose Route Start Last Admin Trade Name Willq PRN Reason Stop Dose Admin Acetaminophen 650 mg 08/01/21 01:29 08/04/21 16:46 Acetaminophen 325 Mg Tablet PO 650 mg Q6H PRN Administration Headache/Pain Mild Scale (1-3) Al Hydroxide/Mg Hydroxide 30 ml 08/01/21 01:29 Magnesium Hydrox/Alum Hydrox 30 Ml Oral.Susp PO Q6H PRN Heartburn/Nausea Hydroxyzine HCl 25 mg 08/01/21 01:29 08/08/21 23:55 Hydroxyzine Hcl 25 Mg Tablet PO 25 mg Q6H PRN Administration Anxiety Hydroxyzine HCl 25 mg 08/07/21 17:00 08/09/21 18:33 Hydroxyzine Hcl 25 Mg Tablet PO 25 mg DAILY@1700 CYNTHIA Administration Lorazepam 1 mg 08/02/21 15:16 08/08/21 14:50 Lorazepam 1 Mg Tablet PO 1 mg Q4H PRN Administration Anxiety Magnesium Hydroxide 30 ml 08/01/21 01:29 Milk Of Magnesia 30 Ml Oral.Susp PO DAILY PRN Constipation Nicotine Polacrilex 4 mg 08/01/21 01:29 Nicotine Polacrilex 2 Mg Gum BUCCAL Q2H PRN Nicotine Cravings Olanzapine 5 mg 08/02/21 15:16 08/08/21 14:50 Olanzapine 5 Mg Tablet PO 5 mg Q4H PRN Administration agitation Olanzapine 20 mg 08/05/21 21:00 08/08/21 21:20 Olanzapine 10 Mg Tablet PO 20 mg BEDTIME CYNTHIA Administration Trazodone HCl 50 mg 08/01/21 01:29 08/08/21 23:55 Trazodone Hcl 50 Mg Tablet PO 50 mg BEDTIME PRN Administration Insomnia Allergies Allergies Allergy/AdvReac Type Severity Reaction Status Date / Time No Known Allergies Allergy Verified 08/01/21 01:29 Assessment & Plan Assessment & Plan (1) Schizophrenia, paranoid, chronic with acute exacerbation: Status: Acute Code(s): F20.0 - Paranoid schizophrenia Assessment and Plan: Mr. Ragland is a 25 year-old male with hx of schizophrenia recently discharged from [facility] with similar presentation including CAH with plan to jump off bridge into [facility]. Pt does have hx of jumping off bridge recently due to CAH. Pt reports he stopped taking risperidone. He is unsure as to how helpful this medication has been. We discussed risks, benefits and alternative treatment options. Pt agreed to try olanzapine. He reports in the past has been on haldol- but didn't like how it may be feel. PLAN May consider switching if not better or adding another antipsychotic (haldol, perphenazine...) 1. keep safe on unit; Q15 min checks. 2. d/sakshi risperidone 3mg po BID 08/04, started olanzapine 7.5 mg PO BID. dosing changed to 20 mg QHS as of 08/05 due to c/o morning sedation. 3. Aftercare planning. Per primary treatment team. Greater than 50% of the session was spent on counseling and/or coordination of care Reason for contiued inpatient stay Substantial Risk for: harm to self and rapid decompensation
[2021-08-09] MEDS: OLANZapine 10 MG TABLET 20 MG PO (22:13)
[2021-08-10 06:00] VITALS: BP 134/70; PULSE 71; TEMP 36.2
--- NOTE | 2021-08-10 13:51 | HO.PSYCHPN ---
Subjective Subjective Date of Service: 08/10/21 Reason For Visit: SI Interim History: pt reports the voices are calm, and the medicine is working. denies SI, MRE so long ago he cannot recall. feeling ready to discharge on tuesday, would like to discuss dispo plans with SW. per staff, attending groups. feeling sleepy 2/2/ meds. sleeping well overnight. anx/dep 6/10. talking less about voices, RIS less. Mental Status Exam Mental Status Exam Narrative: appropriately dressed and groomed. Laying in bed. cooperative. Slowed speech. soft. nml latency. affect Constricted. Appropriate, normo-intense, non-labile. mood fair Hallucinations calmer since coming in. no SI. no HI/VH expressed. Diagnostics Vital Signs (24Hr): Vital Signs - 24 hr 08/09/21 19:15 08/10/21 06:00 Temperature 97.9 F 97.2 F Pulse Rate 95 71 Respiratory Rate 16 Blood Pressure 130/80 134/70 Pulse Oximetry 98 Medications Medications Current Medications Generic Name Dose Route Start Last Admin Trade Name Freq PRN Reason Stop Dose Admin Acetaminophen 650 mg 08/01/21 01:29 08/04/21 16:46 Acetaminophen 325 Mg Tablet PO 650 mg Q6H PRN Administration Headache/Pain Mild Scale (1-3) Al Hydroxide/Mg Hydroxide 30 ml 08/01/21 01:29 Magnesium Hydrox/Alum Hydrox 30 Ml Oral.Susp PO Q6H PRN Heartburn/Nausea Hydroxyzine HCl 25 mg 08/01/21 01:29 08/08/21 23:55 Hydroxyzine Hcl 25 Mg Tablet PO 25 mg Q6H PRN Administration Anxiety Hydroxyzine HCl 25 mg 08/07/21 17:00 08/09/21 18:33 Hydroxyzine Hcl 25 Mg Tablet PO 25 mg DAILY@1700 CYNTHIA Administration Lorazepam 1 mg 08/02/21 15:16 08/08/21 14:50 Lorazepam 1 Mg Tablet PO 1 mg Q4H PRN Administration Anxiety Magnesium Hydroxide 30 ml 08/01/21 01:29 Milk Of Magnesia 30 Ml Oral.Susp PO DAILY PRN Constipation Nicotine Polacrilex 4 mg 08/01/21 01:29 Nicotine Polacrilex 2 Mg Gum BUCCAL Q2H PRN Nicotine Cravings Olanzapine 5 mg 08/02/21 15:16 08/08/21 14:50 Olanzapine 5 Mg Tablet PO 5 mg Q4H PRN Administration agitation Olanzapine 20 mg 08/05/21 21:00 08/09/21 22:13 Olanzapine 10 Mg Tablet PO 20 mg BEDTIME CYNTHIA Administration Trazodone HCl 50 mg 08/01/21 01:29 08/08/21 23:55 Trazodone Hcl 50 Mg Tablet PO 50 mg BEDTIME PRN Administration Insomnia Allergies Allergies Allergy/AdvReac Type Severity Reaction Status Date / Time No Known Allergies Allergy Verified 08/01/21 01:29 Assessment & Plan Assessment & Plan (1) Schizophrenia, paranoid, chronic with acute exacerbation: Status: Acute Code(s): F20.0 - Paranoid schizophrenia Assessment and Plan: Mr. Ragland is a 25 year-old male with hx of schizophrenia recently discharged from [facility] with similar presentation including CAH with plan to jump off bridge into [facility]. Pt does have hx of jumping off bridge recently due to CAH. Pt reports he stopped taking risperidone. He is unsure as to how helpful this medication has been. We discussed risks, benefits and alternative treatment options. Pt agreed to try olanzapine. He reports in the past has been on haldol- but didn't like how it may be feel. PLAN May consider switching if not better or adding another antipsychotic (haldol, perphenazine...) 1. keep safe on unit; Q15 min checks. 2. d/sakshi risperidone 3mg po BID 08/04, started olanzapine 7.5 mg PO BID. dosing changed to 20 mg QHS as of 08/05 due to c/o morning sedation. 3. Aftercare planning. Per primary treatment team. Greater than 50% of the session was spent on counseling and/or coordination of care Reason for contiued inpatient stay Substantial Risk for: harm to self, inability to function and med/psych decompensation
[2021-08-10] MEDS: hydrOXYzine HCL 25 MG TABLET PO (16:42)
[2021-08-10] MEDS: OLANZapine 10 MG TABLET 20 MG PO (21:07)
[2021-08-10 21:09] VITALS: BP 133/87; PULSE 94; TEMP 36.7; O2SAT 98
[2021-08-11 06:00] VITALS: BP 128/78; PULSE 72; RESP 18; TEMP 36.2; O2SAT 98
--- NOTE | 2021-08-11 09:10 | P.PNPSI_ITS ---
Subjective Subjective Date of Service: 08/12/21 Reason For Visit: SI Subjective Notes: Conditional Voluntary Interim History: Pt reports feeling much calmer, he denies hearing voices. He has been more visible in the unit. He denies SI/HI. He reports sleeping and eating well. No behavioral outbursts. No side effects reported. Medication Compliance: Yes Side effects from medications: No Review of Systems Review of Systems General - no fevers or chills Cardiovascular - no chest pain Respiratory - no shortness of breath or cough Abdominal- no abdominal pain, nausea, vomiting, diarrhea Constitutional: Reports poor appetite Eyes: Reports no additional eye complaints Reports system reviewed and no additional complaints, except as documented Cardiovascular: Denies chest pain, Denies chest pain at rest, Denies chest pain with activity, Denies Epigastric Pain, Denies rapid heart rate and Denies dyspnea on exertion Respiratory: Denies chest congestion and Denies dyspnea on exertion Gastrointestinal: Reports constipation Mental Status Exam Mental Status Exam Narrative: Appearance: casually groomed, fair hygiene in NAD Behavior:superficially cooperative psychomotor: no agitation or retardation noted Speech:clear, normal rate/soft volume, spontaneous Thought process:mostly linear, single word answers Thought content:no over delusional content, looking to go home soon Mood: better Affect: constricted but congruent SI:denies HI:denies VH/AH:reports less AH Delusions:less suspicious Insight/judgment:fair x 2. Memory/cog: alert, oriented x 3. Diagnostics Vital Signs (24Hr): Vital Signs - 24 hr 08/11/21 21:05 08/12/21 08:15 Temperature 97.6 F 98.0 F Pulse Rate 109 H 83 Respiratory Rate 18 16 Blood Pressure 116/78 121/79 Pulse Oximetry 97 98 Medications Medications Current Medications Generic Name Dose Route Start Last Admin Trade Name Freq PRN Reason Stop Dose Admin Acetaminophen 650 mg 08/01/21 01:29 08/04/21 16:46 Acetaminophen 325 Mg Tablet PO 650 mg Q6H PRN Administration Headache/Pain Mild Scale (1-3) Al Hydroxide/Mg Hydroxide 30 ml 08/01/21 01:29 Magnesium Hydrox/Alum Hydrox 30 Ml Oral.Susp PO Q6H PRN Heartburn/Nausea Hydroxyzine HCl 25 mg 08/01/21 01:29 08/08/21 23:55 Hydroxyzine Hcl 25 Mg Tablet PO 25 mg Q6H PRN Administration Anxiety Hydroxyzine HCl 25 mg 08/07/21 17:00 08/11/21 16:31 Hydroxyzine Hcl 25 Mg Tablet PO 25 mg DAILY@1700 CYNTHIA Administration Lorazepam 1 mg 08/02/21 15:16 08/11/21 18:10 Lorazepam 1 Mg Tablet PO 1 mg Q4H PRN Administration Anxiety Magnesium Hydroxide 30 ml 08/01/21 01:29 Milk Of Magnesia 30 Ml Oral.Susp PO DAILY PRN Constipation Nicotine Polacrilex 4 mg 08/01/21 01:29 Nicotine Polacrilex 2 Mg Gum BUCCAL Q2H PRN Nicotine Cravings Olanzapine 5 mg 08/02/21 15:16 08/08/21 14:50 Olanzapine 5 Mg Tablet PO 5 mg Q4H PRN Administration agitation Olanzapine 20 mg 08/05/21 21:00 08/11/21 21:13 Olanzapine 10 Mg Tablet PO 20 mg BEDTIME CYNTHIA Administration Trazodone HCl 50 mg 08/01/21 01:29 08/08/21 23:55 Trazodone Hcl 50 Mg Tablet PO 50 mg BEDTIME PRN Administration Insomnia Allergies Allergies Allergy/AdvReac Type Severity Reaction Status Date / Time No Known Allergies Allergy Verified 08/01/21 01:29 Assessment & Plan Assessment & Plan (1) Schizophrenia, paranoid, chronic with acute exacerbation: Status: Acute Code(s): F20.0 - Paranoid schizophrenia Assessment and Plan: Mr. Ragland is a 25 year-old male with hx of schizophrenia recently discharged from [facility] with similar presentation including CAH with plan to jump off bridge into [facility]. Pt does have hx of jumping off bridge recently due to CAH. Pt reports he stopped taking risperidone. He is unsure as to how helpful this medication has been. We discussed risks, benefits and alternative treatment options. Pt agreed to try olanzapine. He reports in the past has been on haldol- but didn't like how it may be feel. PLAN- continue per primary treatment team May consider switching if not better or adding another antipsychotic (haldol, perphenazine...) 1. keep safe on unit; Q15 min checks. 2. d/sakshi risperidone 3mg po BID 08/04, started olanzapine 7.5 mg PO BID. dosing changed to 20 mg QHS as of 08/05 due to c/o morning sedation. 3. Aftercare planning. Per primary treatment team. Greater than 50% of the session was spent on counseling and/or coordination of care Reason for contiued inpatient stay Substantial Risk for: harm to self
[2021-08-11] MEDS: hydrOXYzine HCL 25 MG TABLET PO (16:31)
[2021-08-11] MEDS: LORazepam 1 MG TABLET PO (18:10)
[2021-08-11 21:05] VITALS: BP 116/78; PULSE 109; RESP 18; TEMP 36.4; O2SAT 97
[2021-08-11] MEDS: OLANZapine 10 MG TABLET 20 MG PO (21:13)
[2021-08-12 08:15] VITALS: BP 121/79; PULSE 83; RESP 16; TEMP 36.7; O2SAT 98
--- NOTE | 2021-08-12 09:27 | P.DS_ITS ---
DS: Providers Provider Date of Service: 08/12/21 Date of admission: 08/01/21 01:06 Primary care physician: Unknown Physician Consults: 08/01/21 04:22 Consult to Hospitalist Routine Consulting Provider: Hospitalist Reason For Exam: admitted from [facility]. Consult per policy 08/01/21 09:35 Consult to Hospitalist Routine Consulting Provider: Hospitalist Reason For Exam: routine DS: Diagnosis Discharge Diagnosis (1) Schizophrenia, paranoid, chronic with acute exacerbation: Status: Acute DS: Medications Discharge Medications Home Medications: Previous Rx's Medication Instructions Recorded hydroxyzine HCl 25 mg tablet 25 mg PO DAILY@1700 30 Days #30 tab 08/12/21 lorazepam 1 mg tablet 1 mg PO Q4H PRN 30 Days #15 tab 08/12/21 nicotine (polacrilex) 2 mg gum 4 mg BUCCAL Q2H PRN 30 Days #181 ea 08/12/21 olanzapine 10 mg tablet 20 mg PO BEDTIME 30 Days #60 tab 08/12/21 Mental Status Exam Mental Status Exam Narrative: appropriately dressed and groomed. cooperative. Slowed speech. soft. nml latency. affect Constricted. Appropriate, normo-intense, non-labile. mood good denies SI/HI/AVH. DS: Summary Hospital Course Hospital Course: Mr. Ralgand is a 25 year-old male with hx of schizophrenia recently discharged from [facility] with similar presentation including CAH with plan to jump off bridge into [facility]. Pt does have hx of jumping off bridge recently due to CAH. Pt reports he stopped taking risperidone. He is unsure as to how helpful this medication has been. We discussed risks, benefits and alternative treatment options. Pt agreed to try olanzapine. He reports in the past has been on haldol- but didn't like how it may be feel. Precis: d/sakshi risperidone 3mg po BID 08/04, started olanzapine 7.5 mg PO BID.? dosing changed to 20 mg QHS as of 08/05 due to c/o morning sedation. improved on that regimen and discharged. Time Spent with Patient Time attestation: Total time spent providing and/or coordinating discharge services: Discharge Plan Discharge Patient Disposition: Alf Discharge Diagnosis: Schizophrenia, Paranoid Type Referrals: Dr. Leonard (Psychiatry) [Other] - 1 Week (Please follow up with [facility] workers regarding appointment with psychiatrist Please call the above number to check in regularly regarding upcoming psychiatric appointment. ) Physician,Unknown J [Primary Care Provider] - 08/19/21 2:00 pm Discharge Medications: New nicotine (polacrilex) 2 mg Gum 4 mg buccal Q2H PRN (Reason: Nicotine Cravings) 30 Days Qty: 181 RF: 0 olanzapine 10 mg Tablet 20 mg PO BEDTIME 30 Days Qty: 60 RF: 0 hydroxyzine HCl 25 mg Tablet 25 mg PO DAILY@1700 30 Days Qty: 30 RF: 0 lorazepam 1 mg Tablet 1 mg PO Q4H PRN (Reason: Anxiety) 30 Days Qty: 15 RF: 0 Discharge Orders: Discharge Order (Routine); Ordered 08/12/21 Ordered By: Mike Nicholas Diet: advance to usual diet Activity on Discharge: As tolerated Stand Alone Forms: Patient Portal Discharge page, Community Support Care Plan Goals: maintain independent living in the community Health Concerns: none Plan of Treatment: take medication as prescribed, attend scheduled appointments Assessment: not at imminent risk of harm to self or others Discharge Date/Time: 08/12/21 13:00
[2021-08-12] MEDS: hydrOXYzine HCL 25 MG TABLET PO (10:30)
--- NOTE | 2021-08-12 12:32 | PC.NURSE ---
Patient is alert, fully oriented, pleasant and cooperative with discharge process. Patient denies thoughts of harming self or others. He denies auditory and visual hallucinations. He verbalizes understanding of prescribed medications and scheduled appointments. He denies current physical complaint.
== END 2021-08-12 13:00 | disposition home or self-care (01) | DRG 750 ==
PROVIDERS: Social Worker; Admitting Provider Psychiatry & Neurology Psychiatry; Visit Provider Psychiatry & Neurology Psychiatry
DX: F20.0 Paranoid schizophrenia (principal); R45.851 Suicidal ideations; F17.210 Nicotine dependence, cigarettes, uncomplicated; Z71.6 Tobacco abuse counseling; Z79.899 Other long term (current) drug therapy
CPT/HCPCS: 36415; 80061; 82607; 82746; 83036; 84443; 99232